=== PATIENT | male | born 1960 | race Caucasian/White ===

== ENCOUNTER 2021-01-23 06:30 | Inpatient (IN) | payer OTHER ==
[~2021-01-23] VITALS: Ht 213.4 cm; Wt 115.2 kg
[~2021-01-23 06:30] MED LIST: ATO40T PO; BUSP15TA60 PO; FLEC100T21 PO; HYDR-4072 PO; METO25TA5 PO; PREG75CA PO; WARF4TAB33 PO
[2021-01-23] MEDS ORDERED: BUPIVACAINE W/ EPINEPH 0.25% INJ 50ML MDV ONE (06:54)
[2021-01-23] MEDS ORDERED: TRANEXAMIC ACID 20 ML ONE (06:54)
[2021-01-23] MEDS ORDERED: EPINEPHrine HCL 1 MG/1 ML AMP ONE (06:55)
[2021-01-23] MEDS ORDERED: ceFAZolin 1GM/50ML 100 ML IV ONE ×2 (07:10→14:43)
[2021-01-23] MEDS ORDERED: TETRACAINE 1% INJ 2 ML VIAL IJ ONE (07:29)
[2021-01-23] MEDS ORDERED: VANCOMYCIN HCL 1000 MG VL ONE (07:32)
[2021-01-23] MEDS ORDERED: fentaNYL CITRATE 100 MCG/2 ML VL ONE (07:33)
[2021-01-23] MEDS ORDERED: MORPHINE SULF(PF) 0.5MG/ML 10ML VIAL ONE ×2 (07:33→09:05)
[2021-01-23] MEDS ORDERED: MIDAZOLAM HCL 2MG/2ML 2ml VIAL (1mg/ml) ONE (07:33)
[2021-01-23] MEDS ORDERED: ROCURONIUM 10MG/ML 10ML VIAL IV ONE (08:13)
[2021-01-23] MEDS ORDERED: PROPOFOL 10 MG/ML 20 ML IV ONE (08:15)
[2021-01-23] MEDS ORDERED: LIDOCAINE 2% (LOCAL ANESTH.) PF 5ml SDV ONE (08:15)
[2021-01-23] MEDS ORDERED: ONDANSETRON HCL 4 MG/2 ML VIAL ONE (08:15)
[2021-01-23] MEDS ORDERED: KETOROLAC TROMETH 30 MG/ML 1ML VIAL ONE ×2 (08:24→09:05)
[2021-01-23] MEDS ORDERED: HYDROmorphone HCL 2 MG/ML VL ONE ×3 (08:48→12:15)
[2021-01-23] MEDS: BUPIVACAINE W/ EPINEPH 0.25% INJ 50ML MDV ONE ×2 (09:06→10:50)
[2021-01-23] MEDS: PREGABALIN CAPSULE 75 MG CAP PO SCH ×2 (10:00→22:18)
[2021-01-23] MEDS: busPIRone HCL 10 MG TAB PO SCH ×2 (10:00→22:17)
[2021-01-23] MEDS: FLECAINIDE ACETATE 50 MG TAB PO SCH ×2 (10:00→22:18)
[2021-01-23] MEDS: METOPROLOL TARTRATE 25 MG TAB PO SCH ×2 (10:00→22:18)
[2021-01-23] MEDS ORDERED: ONDANSETRON HCL 4 MG/2 ML VIAL IV PRN ×2 (11:30→11:45)
[2021-01-23] MEDS ORDERED: HYDROmorphone HCL 2 MG/ML VL IV PRN ×2 (11:30→11:45)
[2021-01-23] MEDS: HYDROmorphone HCL 2 MG/ML VL IV PRN ×4 (11:51→13:35)
[2021-01-23] MEDS ORDERED: ACETAMINOPHEN 325 MG TAB PO SCH (12:00)
[2021-01-23] MEDS: SODIUM CHLORIDE 0.9% 1,000 ML IV SCH (12:15)
[2021-01-23] MEDS: KETOROLAC TROMETH 30 MG/ML 1ML VIAL IV SCH ×2 (12:56→18:08)
[2021-01-23] MEDS: ceFAZolin 2 GM in D5W 5% 100 ML IV SCH ×2 (14:45→22:16)
[2021-01-23] MEDS ORDERED: ceFAZolin 1GM/50ML 50 ML IV ONE (14:47)
[2021-01-23] MEDS: oxyCODONE HCL 5MG TAB PO PRN ×2 (15:38→20:57)
[2021-01-23 16:45] VITALS: BP 134/87
[2021-01-23] MEDS: ACETAMINOPHEN 325 MG TAB PO SCH (18:08)
[2021-01-23 22:00] VITALS: BP 141/91
[2021-01-23] MEDS: ATORVASTATIN 20 MG TAB PO SCH (22:17)
[2021-01-24] MEDS: KETOROLAC TROMETH 30 MG/ML 1ML VIAL IV SCH ×5 (00:07→23:25)
[2021-01-24] MEDS: ACETAMINOPHEN 325 MG TAB PO SCH ×5 (00:08→23:25)
[2021-01-24] MEDS: SODIUM CHLORIDE 0.9% 1,000 ML IV SCH ×4 (00:13→19:30)
[2021-01-24 05:00] VITALS: BP 124/72
[2021-01-24 07:39] LABS: Basophils # (auto) 0 10 ^3/uL (0-0.2); Basophils % (auto) 0.2 % (0.0-2.0); Eosinophils # (auto) 0 10 ^3/uL (0-0.8); Eosinophils % (auto) 0.3 % (0.0-7.0); Hematocrit 33.9 % (41.0-53.0); Hemoglobin 11.8 g/dL (13.5-17.5); Lymphocytes # (auto) 1.5 10 ^3/uL (0.4-5.4); Lymphocytes % (auto) 15.8 % (10.0-50.0); Mean Corpuscular Hemoglobin 32.1 pg (28.0-32.0); Mean Corpuscular Hgb Conc. 34.9 g/dL (32.0-36.0); Mean Corpuscular Volume 92.1 fL (80.0-100.0); Monocytes # (auto) 1.1 10 ^3/uL (0-1.3); Monocytes % (auto) 10.8 % (0.0-12.0); Neutrophils # (auto) 7.1 10 ^3/uL (1.6-8.6); Neutrophils % (auto) 72.9 % (37.0-80.0); Red Blood Cells 3.69 10^6/uL (4.5-5.90); Red Cell Distribution Width 14.2 % (11.8-14.3); White Blood Cell 9.7 10^3/uL (4.4-10.8)
[2021-01-24 07:58] LABS: BUN/Creatinine Ratio 16.7; Calcium 7.6 mg/dL (8.5-10.1); Potassium 3.7 mmol/L (3.5-5.1)
[2021-01-24 08:11] LABS: INR 1.27 (0.9-1.15)
[2021-01-24 09:00] VITALS: BP 130/74
[2021-01-24] MEDS: busPIRone HCL 10 MG TAB PO SCH ×2 (10:00→21:58)
[2021-01-24] MEDS: PREGABALIN CAPSULE 75 MG CAP PO SCH ×2 (10:00→21:59)
[2021-01-24] MEDS: METOPROLOL TARTRATE 25 MG TAB PO SCH ×2 (10:00→21:59)
[2021-01-24] MEDS: FLECAINIDE ACETATE 50 MG TAB PO SCH ×2 (10:00→21:59)
[2021-01-24 13:00] VITALS: BP 97/65
[2021-01-24 16:56] VITALS: BP 118/74
[2021-01-24] MEDS ORDERED: WARFARIN SODIUM 2 MG TAB PO SCH (17:00)
[2021-01-24] MEDS: oxyCODONE HCL 5MG TAB PO PRN ×2 (21:00→23:26)
[2021-01-24 21:49] VITALS: BP 127/82
[2021-01-24] MEDS: ATORVASTATIN 20 MG TAB PO SCH (21:58)
[2021-01-25] MEDS: oxyCODONE HCL 5MG TAB PO PRN ×5 (03:30→21:42)
[2021-01-25 05:00] VITALS: BP 123/72
[2021-01-25] MEDS: KETOROLAC TROMETH 30 MG/ML 1ML VIAL IV SCH ×3 (05:50→17:38)
[2021-01-25] MEDS: ACETAMINOPHEN 325 MG TAB PO SCH ×3 (05:51→17:38)
[2021-01-25] MEDS: SODIUM CHLORIDE 0.9% 1,000 ML IV SCH (06:31)
[2021-01-25 08:04] LABS: Basophils # (auto) 0 10 ^3/uL (0-0.2); Basophils % (auto) 0.3 % (0.0-2.0); Eosinophils # (auto) 0.1 10 ^3/uL (0-0.8); Eosinophils % (auto) 1.5 % (0.0-7.0); Hematocrit 31.8 % (41.0-53.0); Lymphocytes # (auto) 1.7 10 ^3/uL (0.4-5.4); Lymphocytes % (auto) 23.4 % (10.0-50.0); Mean Corpuscular Hemoglobin 31.6 pg (28.0-32.0); Mean Corpuscular Hgb Conc. 34.5 g/dL (32.0-36.0); Mean Corpuscular Volume 91.5 fL (80.0-100.0); Monocytes # (auto) 0.9 10 ^3/uL (0-1.3); Monocytes % (auto) 11.8 % (0.0-12.0); Neutrophils # (auto) 4.5 10 ^3/uL (1.6-8.6); Red Blood Cells 3.47 10^6/uL (4.5-5.90); Red Cell Distribution Width 14.4 % (11.8-14.3); White Blood Cell 7.2 10^3/uL (4.4-10.8)
[2021-01-25 08:12] LABS: INR 1.25 (0.9-1.15)
[2021-01-25 09:00] VITALS: BP 125/87
[2021-01-25] MEDS: busPIRone HCL 10 MG TAB PO SCH ×2 (09:34→21:41)
[2021-01-25] MEDS: PREGABALIN CAPSULE 75 MG CAP PO SCH ×2 (09:35→21:41)
[2021-01-25] MEDS: METOPROLOL TARTRATE 25 MG TAB PO SCH ×2 (09:35→22:08)
[2021-01-25] MEDS: FLECAINIDE ACETATE 50 MG TAB PO SCH ×2 (09:36→21:41)
[2021-01-25 13:00] VITALS: BP 109/54
[2021-01-25 17:00] VITALS: BP 105/63
[2021-01-25] MEDS ORDERED: WARFARIN SODIUM 2 MG TAB PO SCH (17:00)
[2021-01-25] MEDS: ATORVASTATIN 20 MG TAB PO SCH (21:41)
[2021-01-25 22:00] VITALS: BP 126/78
[2021-01-26] MEDS: KETOROLAC TROMETH 30 MG/ML 1ML VIAL IV SCH ×3 (00:01→12:35)
[2021-01-26] MEDS: ACETAMINOPHEN 325 MG TAB PO SCH ×3 (00:01→12:35)
[2021-01-26] MEDS: oxyCODONE HCL 5MG TAB PO PRN ×4 (00:02→15:37)
[2021-01-26 05:00] VITALS: BP 135/82
[2021-01-26 05:55] LABS: INR 1.2 (0.9-1.15)
[2021-01-26 08:00] VITALS: BP 162/89
[2021-01-26 09:00] VITALS: BP 162/89
[2021-01-26] MEDS: busPIRone HCL 10 MG TAB PO SCH (09:57)
[2021-01-26] MEDS: METOPROLOL TARTRATE 25 MG TAB PO SCH (09:58)
[2021-01-26] MEDS: PREGABALIN CAPSULE 75 MG CAP PO SCH (09:58)
[2021-01-26] MEDS: FLECAINIDE ACETATE 50 MG TAB PO SCH (09:59)
[2021-01-26 13:00] VITALS: BP 118/70
[2021-01-26 14:55] VITALS: BP 118/70
[2021-01-26] MEDS ORDERED: WARFARIN SODIUM 2 MG TAB PO SCH (17:00)
== END 2021-01-26 15:00 | disposition home or self-care (01) | DRG 470 ==
LOC: SUR 06:30 → OVERFLOW 11:28 → CENTRAL 15:17
PROVIDERS: ADMIT Orthopaedic Surgery; ATTEND Orthopaedic Surgery
PROC: BW1C1ZZ Fluoroscopy of Lower Extremity using Low Osmolar Contrast (ICD-10-PCS; 2021-01-23)
PROC: 0SRB06Z Replacement of Left Hip Joint with Oxidized Zirconium on Polyethylene Synthetic Substitute, Open Approach (ICD-10-PCS; principal; 2021-01-23 07:54)
DX: M16.12 Unilateral primary osteoarthritis, left hip (principal); M87.88 Other osteonecrosis, other site; E66.9 Obesity, unspecified; Z20.822 Contact with and (suspected) exposure to COVID-19; M25.752 Osteophyte, left hip; I48.91 Unspecified atrial fibrillation; I10 Essential (primary) hypertension; G89.29 Other chronic pain; M54.5 Low back pain; F41.9 Anxiety disorder, unspecified; E78.5 Hyperlipidemia, unspecified; Z88.5 Allergy status to narcotic agent; Z68.25 Body mass index [BMI] 25.0-25.9, adult
CPT/HCPCS: 36415; 72170; 73502; 76001; 80048; 82962; 85025; 85610; 86850; 86900; 86901; 97116; 97163; 97530; C1776; G0378; J0171; J0690; J1885; J2001; J2250; J2405; J2704; J7060